=== PATIENT | male | born 1980 | race Caucasian/White ===

== ENCOUNTER 2016-03-05 05:40 | Emergency (ER) | payer SELFPAY ==
[2016-03-05] MEDS ORDERED: ACETAMINOPHEN 325 MG TAB As Ordered ONE (08:11)
[2016-03-05] MEDS ORDERED: IPRATROPIUM 0.5MG/ALBUTEROL 2.5MG INH SOL UD 3ML (DUONEB)(J7620) As Ordered ONE (08:13)
--- NOTE | 2016-03-05 08:58 | EDDOCDS ---
Physician Documentation [facility] Name: Ezequiel Hines Age: 35 yrs Sex: Male : 1980 Arrival Date: 03/05/2016 Time: 05:40 Bed 15 Private MD: Disposition: 03/05/16 08:43 Discharged to Home/Self Care. Impression: Acute upper respiratory infection, unspecified. - Condition is Stable. - Discharge Instructions: Upper Respiratory Infection, Adult, [id number]. - Prescriptions for Albuterol Sulfate 90 mcg/actuation Inhalation HFA Aerosol Inhaler - inhale 2 puff by INHALATION route every 4 hours As needed; 1 Inhaler. - Medication Reconciliation, Local Pharmacy Hours form. - Follow up: [facility]; When: Call to arrange an appointment; Reason: Continuance of care. - Problem is new. - Symptoms have improved. Historical: - Allergies: No known drug Allergies; - Home Meds: 1. nyquil 10 mL (Last dose: 03/04/2016 22:00) - PMHx: none; - PSHx: none; - Social history: Smoking status: Patient uses tobacco products, light tobacco smoker. No barriers to communication noted, The patient speaks fluent Polish, Speaks appropriately for age. - Family history: Not pertinent. - : The pt / caregiver states he / she is not on anticoagulants. Home medication list is obtained from the patient. - Exposure Risk Screening:: None identified. Vital Signs: 03/05 06:05 BP 127 / 72; Pulse 67; Resp 18; Temp 97.2(O); Pulse Ox 97% ; Weight 97.52 kg / 214.99 kmg1 lbs (R); Height 6 ft. 1 in. (185.42 cm) (R); Pain 7/10; 08:56 BP 114 / 75; Pulse 66; Resp 18; Temp 96.4(O); Pulse Ox 97% on R/A; Pain 5/10; jjr 06:05 Body Mass Index 28.37 (97.52 kg, 185.42 cm) kmg1 MDM: 07:55 Albuterol-Ipratropium 3 ml Inhalation once ordered. fg 07:55 Strep Screen, Nursing ordered. fg 07:55 Acetaminophen Tablet 650 mg PO once ordered. fg 07:57 Chest, 1 View Ordered. EDMS 08:17 GATS (NEGATIVE STREP SCREEN) Ordered. EDMS Administered Medications: 08:15 Drug: Acetaminophen 650 mg [acetaminophen 325 mg tablet (2 tabs)] Route: PO; jjr 08:17 Drug: Albuterol-Ipratropium 3 ml [ipratropium-albuterol 0.5 mg-3 mg(2.5 mg base)/3 mL 6 nebulization soln (3 mL)] Route: Inhalation; 08:38 Follow up: Response: Nebulizer completed [facility] Signatures: Dispatcher Med[employer] EDMS Carla Mercado, RN RN kmg1 Mayi Butler RN RN jjr Simran Godoy MD MD fg Gracy Henry RN RN tm5 Sun Marquez 6 [facility]
--- NOTE | 2016-03-05 08:58 | EDDOCDS ---
Nurse's Notes [facility] Name: Ezequiel Hines Age: 35 yrs Sex: Male : 1980 Arrival Date: 03/05/2016 Time: 05:40 Bed 15 Private MD: Diagnosis: Acute upper respiratory infection, unspecified Presentation: 03/05 06:02 Presenting complaint: Patient states: Headache, cough, sore throat. 2 weeks. Not kmg1 getting better. Suicide/Homicide risk assessment- the patient denies having any suicidal and/or homicidal ideations and does not present with any other emotional, behavioral or mental health complaints. Status: Patient is not a resident services director or dependent. Transition of care: patient was not received from another setting of care. 06:02 Acuity: BARB Level 4 [facility] 06:02 Method Of Arrival: Walkin/Carried/[place]std [facility] 06:09 Adult Sepsis Screening: The patient does not have new or worsening altered mentation. kmg1 Patient's respiratory rate is less than 22. Systolic blood pressure is greater than 100. Patient has a qSOFA score of 0- Negative Sepsis Screen. Triage Assessment: 06:05 General: Appears in no apparent distress, comfortable, Behavior is appropriate for age, kmg1 cooperative, pleasant. Pain: Location: right sikhism and left sikhism Pain currently is 7 out of 10 on a pain scale. Quality of pain is described as squeezing. HIV screening NA for this visit Offered previously. Neurological: Level of Consciousness is awake, alert, Oriented to person, place, time, Reports headache. EENT: Throat is pink Reports pain in throat. Historical: - Allergies: No known drug Allergies; - Home Meds: 1. nyquil 10 mL (Last dose: 03/04/2016 22:00) - PMHx: none; - PSHx: none; - Social history: Smoking status: Patient uses tobacco products, light tobacco smoker. No barriers to communication noted, The patient speaks fluent Polish, Speaks appropriately for age. - Family history: Not pertinent. - : The pt / caregiver states he / she is not on anticoagulants. Home medication list is obtained from the patient. - Exposure Risk Screening:: None identified. Screenin:38 Screening information is obtained from the patient. Fall risk: No risks identified. tm5 Assistance ADL's: requires no assistance with activities of daily living. Abuse/DV Screen: The patient / caregiver reports he/she is: not in a situation that causes fear, pain or injury. Nutritional screening: No deficits noted. Advance Directives: Currently, there is no health care proxy. home support is adequate. Assessment: 06:38 General: Appears in no apparent distress, Behavior is appropriate for age, cooperative. tm5 Pain: Location: right sikhism and left sikhism Pain currently is 7 out of 10 on a pain scale. Quality of pain is described as throbbing. Neurological: Level of Consciousness is awake, alert, Oriented to person, place, time. EENT: Throat is pink. Respiratory: Airway is patent Respiratory effort is even, unlabored, Respiratory pattern is regular, symmetrical, Breath sounds are clear bilaterally. Reports cough that is non-productive, dry, for 2 weeks now. Derm: Skin is pink, warm & dry. normal. 07:22 General: Appears in no apparent distress, Behavior is appropriate for age. EENT: jjr audible nasal congestion. Respiratory: Breath sounds are coarse in left posterior upper lobe, right posterior upper lobe and right posterior middle lobe Breath sounds with wheezes in left posterior upper lobe and right posterior upper lobe Reports cough that is dry. Respiratory: Airway is patent Respiratory effort is even, unlabored, Respiratory pattern is regular. Derm: No deficits noted. 08:33 General: Appears in no apparent distress, coarse breath sounds no longer present, jjr expiratory wheezes remain. Respiratory: Airway is patent Respiratory effort is even, unlabored, Respiratory pattern is regular. Derm: No deficits noted. 08:56 General: rates chest tightness/ache 5/10. jjr Vital Signs: 06:05 BP 127 / 72; Pulse 67; Resp 18; Temp 97.2(O); Pulse Ox 97% ; Weight 97.52 kg (R); kmg1 Height 6 ft. 1 in. (185.42 cm) (R); Pain 7/10; 08:56 BP 114 / 75; Pulse 66; Resp 18; Temp 96.4(O); Pulse Ox 97% on R/A; Pain 5/10; jjr 06:05 Body Mass Index 28.37 (97.52 kg, 185.42 cm) [facility] Vitals: 06:05 Log In Time: March 05, 2016 at 05:39. kmg1 08:15 Strep Screen is obtained and tested: Negative, a GATSNEG culture is ordered in [facility] jr and sent. ED Course: 05:41 Patient visited by Laurie Zhou, Reg. hs2 05:41 Patient moved to Waiting hs2 06:03 Triage Initiated kmg1 06:17 Patient moved to 15 kmg1 06:37 Patient visited by Gracy Henry RN. tm5 06:38 Awaiting ED physician evaluation. tm5 06:38 The patient / caregiver is instructed regarding the plan of care and ED course. Family tm5 accompanied patient. 07:18 Simran Godoy MD is Attending Physician. fg 07:23 Patient visited by Mayi Butler RN. jjr 07:35 Patient visited by Simran Godoy MD. fg 08:35 Patient visited by Mayi Butler RN. jjr 08:[address] [facility] is Referral Physician. fg 08:56 No IV's were initiated during this patient's visit. No procedures done that require jjr assistance. Administered Medications: 08:15 Drug: Acetaminophen 650 mg [acetaminophen 325 mg tablet (2 tabs)] Route: PO; jjr 08:17 Drug: Albuterol-Ipratropium 3 ml [ipratropium-albuterol 0.5 mg-3 mg(2.5 mg base)/3 mL [facility] nebulization soln (3 mL)] Route: Inhalation; 08:38 Follow up: Response: Nebulizer completed km6 RT: 08:38 Initial Med Neb Given as ordered Patient was instructed and evaluated on procedure km6 Patient tolerated procedure well without adverse effect. Respiratory: Breath sounds with wheezes bilaterally. at expiration. Order Results: There are currently no results for this order. Outcome: 08:43 Discharge ordered by Provider. fg 08:56 Discharge Assessment: patient administered narcotics - no. The following High Risk jjr Discharge criteria are identified: None. Discharged to home ambulatory. Condition: stable. Discharge instructions given to patient, Instructed on discharge instructions, follow up and referral plans. medication usage, Demonstrated understanding of instructions, medications, Prescriptions given X 1. No special radiology studies were completed. Property sent home with patient. 08:57 Patient left the ED. jjr Signatures: Carla Mercado RN RN [facility] Sun Marquez [facility] Mayi Butler, RN RN jjr Simran Godoy MD MD Laurie Zhou, [facility] Reg hs2 Gracy Henry,RN RN tm5 CATHERINED
--- NOTE | 2016-03-06 11:07 | REP ---
Portable chest, AP view: Comparison is 02/12/2015. The lung sanchez are clear. The cardiac size is normal The romi, mediastinum, and bony thorax are unremarkable. Impression: Negative portable chest. Signed by Amrit Peace MD 03/05/2016 08:34 A
--- NOTE | 2016-03-07 09:58 | EDDOCDS ---
Physician Documentation [facility] Name: Ezequiel Hines Age: 35 yrs Sex: Male : 1980 Arrival Date: 03/05/2016 Time: 05:40 Bed 15 Private MD: Disposition: 03/05/16 08:43 Discharged to Home/Self Care. Impression: Acute upper respiratory infection, unspecified. - Condition is Stable. - Discharge Instructions: Upper Respiratory Infection, Adult, [id number]. - Prescriptions for Albuterol Sulfate 90 mcg/actuation Inhalation HFA Aerosol Inhaler - inhale 2 puff by INHALATION route every 4 hours As needed; 1 Inhaler. - Medication Reconciliation, Local Pharmacy Hours form. - Follow up: [facility]; When: Call to arrange an appointment; Reason: Continuance of care. - Problem is new. - Symptoms have improved. Historical: - Allergies: No known drug Allergies; - Home Meds: 1. nyquil 10 mL (Last dose: 03/04/2016 22:00) - PMHx: none; - PSHx: none; - Social history: Smoking status: Patient uses tobacco products, light tobacco smoker. No barriers to communication noted, The patient speaks fluent Ukrainian, Speaks appropriately for age. - Family history: Not pertinent. - : The pt / caregiver states he / she is not on anticoagulants. Home medication list is obtained from the patient. - Exposure Risk Screening:: None identified. Vital Signs: 03/05 06:05 BP 127 / 72; Pulse 67; Resp 18; Temp 97.2(O); Pulse Ox 97% ; Weight 97.52 kg / 214.99 kmg1 lbs (R); Height 6 ft. 1 in. (185.42 cm) (R); Pain 7/10; 08:56 BP 114 / 75; Pulse 66; Resp 18; Temp 96.4(O); Pulse Ox 97% on R/A; Pain 5/10; jjr 06:05 Body Mass Index 28.37 (97.52 kg, 185.42 cm) kmg1 MDM: 07:55 Albuterol-Ipratropium 3 ml Inhalation once ordered. fg 07:55 Strep Screen, Nursing ordered. fg 07:55 Acetaminophen Tablet 650 mg PO once ordered. fg 07:57 Chest, 1 View Ordered. EDMS 08:17 GATS (NEGATIVE STREP SCREEN) Ordered. EDMS 09:59 Financial registration complete. mm15 10:00 [facility] Payment Agreement was scanned into [employer] and attached to record. mm15 18:29 T-Sheet-- Draft Copy was scanned into [employer] and attached to record. klr Administered Medications: 08:15 Drug: Acetaminophen 650 mg [acetaminophen 325 mg tablet (2 tabs)] Route: PO; jjr 08:17 Drug: Albuterol-Ipratropium 3 ml [ipratropium-albuterol 0.5 mg-3 mg(2.5 mg base)/3 mL km6 nebulization soln (3 mL)] Route: Inhalation; 08:38 Follow up: Response: Nebulizer completed km6 Signatures: Dispatcher [employer] EDMS Carla Mercado RN RN kmg1 Mayi Butler RN RN jBrandi Nuñez mm15 Simran Godoy MD MD fg Redder, Kathie klr Matice, Tonya, RN RN tm5 Sun Marquez km6 The chart was reviewed and I authenticate all verbal orders and agree with the evaluation and treatment provided.Attachments: 10:00 [facility] Payment Agreement mm15 18:29 T-Sheet-- Draft Copy klr Chart Complete MTDD
--- NOTE | 2016-03-07 09:58 | EDDOCDS ---
Nurse's Notes [facility] Name: Ezequiel Hines Age: 35 yrs Sex: Male : 1980 Arrival Date: 03/05/2016 Time: 05:40 Bed 15 Private MD: Diagnosis: Acute upper respiratory infection, unspecified Presentation: 03/05 06:02 Presenting complaint: Patient states: Headache, cough, sore throat. 2 weeks. Not kmg1 getting better. Suicide/Homicide risk assessment- the patient denies having any suicidal and/or homicidal ideations and does not present with any other emotional, behavioral or mental health complaints. Status: Patient is not a retail service technician or dependent. Transition of care: patient was not received from another setting of care. 06:02 Acuity: BARB Level 4 [facility] 06:02 Method Of Arrival: Walkin/Carried/Asstd [facility] 06:09 Adult Sepsis Screening: The patient does not have new or worsening altered mentation. kmg1 Patient's respiratory rate is less than 22. Systolic blood pressure is greater than 100. Patient has a qSOFA score of 0- Negative Sepsis Screen. Triage Assessment: 06:05 General: Appears in no apparent distress, comfortable, Behavior is appropriate for age, kmg1 cooperative, pleasant. Pain: Location: right congregational and left congregational Pain currently is 7 out of 10 on a pain scale. Quality of pain is described as squeezing. HIV screening NA for this visit Offered previously. Neurological: Level of Consciousness is awake, alert, Oriented to person, place, time, Reports headache. EENT: Throat is pink Reports pain in throat. Historical: - Allergies: No known drug Allergies; - Home Meds: 1. nyquil 10 mL (Last dose: 03/04/2016 22:00) - PMHx: none; - PSHx: none; - Social history: Smoking status: Patient uses tobacco products, light tobacco smoker. No barriers to communication noted, The patient speaks fluent Icelandic, Speaks appropriately for age. - Family history: Not pertinent. - : The pt / caregiver states he / she is not on anticoagulants. Home medication list is obtained from the patient. - Exposure Risk Screening:: None identified. Screenin:38 Screening information is obtained from the patient. Fall risk: No risks identified. tm5 Assistance ADL's: requires no assistance with activities of daily living. Abuse/DV Screen: The patient / caregiver reports he/she is: not in a situation that causes fear, pain or injury. Nutritional screening: No deficits noted. Advance Directives: Currently, there is no health care proxy. home support is adequate. Assessment: 06:38 General: Appears in no apparent distress, Behavior is appropriate for age, cooperative. tm5 Pain: Location: right congregational and left congregational Pain currently is 7 out of 10 on a pain scale. Quality of pain is described as throbbing. Neurological: Level of Consciousness is awake, alert, Oriented to person, place, time. EENT: Throat is pink. Respiratory: Airway is patent Respiratory effort is even, unlabored, Respiratory pattern is regular, symmetrical, Breath sounds are clear bilaterally. Reports cough that is non-productive, dry, for 2 weeks now. Derm: Skin is pink, warm & dry. normal. 07:22 General: Appears in no apparent distress, Behavior is appropriate for age. EENT: jjr audible nasal congestion. Respiratory: Breath sounds are coarse in left posterior upper lobe, right posterior upper lobe and right posterior middle lobe Breath sounds with wheezes in left posterior upper lobe and right posterior upper lobe Reports cough that is dry. Respiratory: Airway is patent Respiratory effort is even, unlabored, Respiratory pattern is regular. Derm: No deficits noted. 08:33 General: Appears in no apparent distress, coarse breath sounds no longer present, jjr expiratory wheezes remain. Respiratory: Airway is patent Respiratory effort is even, unlabored, Respiratory pattern is regular. Derm: No deficits noted. 08:56 General: rates chest tightness/ache 5/10. jjr Vital Signs: 06:05 BP 127 / 72; Pulse 67; Resp 18; Temp 97.2(O); Pulse Ox 97% ; Weight 97.52 kg (R); kmg1 Height 6 ft. 1 in. (185.42 cm) (R); Pain 7/10; 08:56 BP 114 / 75; Pulse 66; Resp 18; Temp 96.4(O); Pulse Ox 97% on R/A; Pain 5/10; jjr 06:05 Body Mass Index 28.37 (97.52 kg, 185.42 cm) [facility] Vitals: 06:05 Log In Time: March 05, 2016 at 05:39. kmg1 08:15 Strep Screen is obtained and tested: Negative, a GATSNEG culture is ordered in [facility] jr and sent. ED Course: 05:41 Patient visited by Laurie Zhou, Reg. hs2 05:41 Patient moved to Waiting hs2 06:03 Triage Initiated kmg1 06:17 Patient moved to 15 kmg1 06:37 Patient visited by Gracy Henry,AFIA. tm5 06:38 Awaiting ED physician evaluation. tm5 06:38 The patient / caregiver is instructed regarding the plan of care and ED course. Family tm5 accompanied patient. 07:18 Simran Godoy MD is Attending Physician. fg 07:23 Patient visited by Mayi Butler, AFIA. jjr 07:35 Patient visited by Simran Godoy MD. fg 08:35 Patient visited by Mayi Butler, AFIA. jjr 08:43 [facility] is Referral Physician. fg 08:56 No IV's were initiated during this patient's visit. No procedures done that require jjr assistance. 10:00 [facility] Payment Agreement was scanned into [employer] and attached to record. mm15 18:29 T-Sheet-- Draft Copy was scanned into [employer] and attached to record. klr 03/06 11:19 Chest, 1 View Returned. EDMS Administered Medications: 03/05 08:15 Drug: Acetaminophen 650 mg [acetaminophen 325 mg tablet (2 tabs)] Route: PO; jjr 08:17 Drug: Albuterol-Ipratropium 3 ml [ipratropium-albuterol 0.5 mg-3 mg(2.5 mg base)/3 mL [facility] nebulization soln (3 mL)] Route: Inhalation; 08:38 Follow up: Response: Nebulizer completed km6 RT: 08:38 Initial Med Neb Given as ordered Patient was instructed and evaluated on procedure km6 Patient tolerated procedure well without adverse effect. Respiratory: Breath sounds with wheezes bilaterally. at expiration. Order Results: Lab Order: GATS (NEGATIVE STREP SCREEN); SPEC'M 03/05/16 08:20 Test: GATS CULTURE (NEG STREP SCR); Value: GATS RESULT NEGATIVE FOR STREP PYOGENES (GROUP A); Status: F Test: GATS CULTURE (NEG STREP SCR); Value: <EXTERNAL COMMENT eCWMed> FULL REPORT IN LAB NOTES (eCW and Medent).; Status: F Radiology Order: Chest, 1 View Test: Chest, 1 View REASON FOR EXAMINATION: Cough; Portable chest, AP view:; ; Comparison is 02/12/2015.; ; The lung sanchez are clear. The cardiac size is normal; ; The romi, mediastinum, and bony thorax are unremarkable.; ; Impression:; ; Negative portable chest.; ; ; Signed by; Amrit Peace MD 03/05/2016 08:34 A; Outcome: 08:43 Discharge ordered by Provider. fg 08:56 Discharge Assessment: patient administered narcotics - no. The following High Risk jjr Discharge criteria are identified: None. Discharged to home ambulatory. Condition: stable. Discharge instructions given to patient, Instructed on discharge instructions, follow up and referral plans. medication usage, Demonstrated understanding of instructions, medications, Prescriptions given X 1. No special radiology studies were completed. Property sent home with patient. 08:57 Patient left the ED. jjr Signatures: Dispatcher [employer] EDMS Carla Mercado RN RN kmg1 Sun Marquez km6 Mayi Butler RN RN jjBrandi Oliver mm15 Simran Godoy MD MD Laurie Zhou, Reg Reg hs2 Eunice Nava Tonya,RN RN tm5 Chart Complete MTDD
--- NOTE | 2016-03-07 09:58 | EDDOCDS ---
Physician Documentation [facility] Name: Ezequiel Hines Age: 35 yrs Sex: Male : 1980 Arrival Date: 03/05/2016 Time: 05:40 Bed 15 Private MD: Disposition: 03/05/16 08:43 Discharged to Home/Self Care. Impression: Acute upper respiratory infection, unspecified. - Condition is Stable. - Discharge Instructions: Upper Respiratory Infection, Adult, [id number]. - Prescriptions for Albuterol Sulfate 90 mcg/actuation Inhalation HFA Aerosol Inhaler - inhale 2 puff by INHALATION route every 4 hours As needed; 1 Inhaler. - Medication Reconciliation, Local Pharmacy Hours form. - Follow up: [facility]; When: Call to arrange an appointment; Reason: Continuance of care. - Problem is new. - Symptoms have improved. Historical: - Allergies: No known drug Allergies; - Home Meds: 1. nyquil 10 mL (Last dose: 03/04/2016 22:00) - PMHx: none; - PSHx: none; - Social history: Smoking status: Patient uses tobacco products, light tobacco smoker. No barriers to communication noted, The patient speaks fluent Romansh, Speaks appropriately for age. - Family history: Not pertinent. - : The pt / caregiver states he / she is not on anticoagulants. Home medication list is obtained from the patient. - Exposure Risk Screening:: None identified. Vital Signs: 03/05 06:05 BP 127 / 72; Pulse 67; Resp 18; Temp 97.2(O); Pulse Ox 97% ; Weight 97.52 kg / 214.99 kmg1 lbs (R); Height 6 ft. 1 in. (185.42 cm) (R); Pain 7/10; 08:56 BP 114 / 75; Pulse 66; Resp 18; Temp 96.4(O); Pulse Ox 97% on R/A; Pain 5/10; jjr 06:05 Body Mass Index 28.37 (97.52 kg, 185.42 cm) kmg1 MDM: 07:55 Albuterol-Ipratropium 3 ml Inhalation once ordered. fg 07:55 Strep Screen, Nursing ordered. fg 07:55 Acetaminophen Tablet 650 mg PO once ordered. fg 07:57 Chest, 1 View Ordered. EDMS 08:17 GATS (NEGATIVE STREP SCREEN) Ordered. EDMS 09:59 Financial registration complete. mm15 10:00 [facility] Payment Agreement was scanned into [employer] and attached to record. mm15 18:29 T-Sheet-- Draft Copy was scanned into [employer] and attached to record. klr Administered Medications: 08:15 Drug: Acetaminophen 650 mg [acetaminophen 325 mg tablet (2 tabs)] Route: PO; jjr 08:17 Drug: Albuterol-Ipratropium 3 ml [ipratropium-albuterol 0.5 mg-3 mg(2.5 mg base)/3 mL km6 nebulization soln (3 mL)] Route: Inhalation; 08:38 Follow up: Response: Nebulizer completed km6 Signatures: Dispatcher [employer] EDMS Carla Mercado RN RN kmg1 Mayi Butler RN RN jBrandi Nuñez mm15 Simran Godoy MD MD fg Redder, Kathie klr Matice, Tonya, RN RN tm5 Sun Marquez km6 The chart was reviewed and I authenticate all verbal orders and agree with the evaluation and treatment provided.Attachments: 10:00 [facility] Payment Agreement mm15 18:29 T-Sheet-- Draft Copy klr Chart Complete MTDD
== END 2016-03-05 08:57 | disposition home or self-care (01) ==
LOC: M ED 05:40
DX: J06.9 Acute upper respiratory infection, unspecified (principal); F17.200 Nicotine dependence, unspecified, uncomplicated

== ENCOUNTER 2017-03-09 13:28 | Emergency (ER) | payer SELFPAY ==
[2017-03-09] MEDS: ONDANSETRON 4MG/2ML VIAL (J2405) IV (14:47)
[2017-03-09] MEDS: KETOROLAC 30 MG/ML VIAL (J1885) IV (14:47)
[2017-03-09] MEDS: NS 1,000 ML IV (14:47)
[2017-03-09] MEDS: GASTROGRAFIN SOLUTION 30ML PO ×2 (14:52→15:21)
[2017-03-09 15:01] LABS: BASO # 0.1 10^3/uL (0.0-0.2); BASO % 0.4 % (0.0-1.0); EOS % 0.2 % (0.0-3.0); HEMATOCRIT 47.6 % (42.0-52.0); HEMOGLOBIN 16.9 g/dl (14.0-18.0); IMMATURE GRANULOCYTE # 0.1 10^3/uL (0-0); IMMATURE GRANULOCYTE % 0.4 % (0-0); LYMPH # 1.6 10^3/uL (1.5-4.5); LYMPH % 9.9 % (24.0-44.0); MEAN CORPUSCULAR HEMOGLOBIN 32.3 pg (27.0-33.0); MEAN CORPUSCULAR HGB CONC 35.5 g/dl (32.0-36.5); MONO % 5.9 % (0.0-5.0); NEUTROPHILS # 13.5 10^3/uL (1.8-7.7); NEUTROPHILS % 83.2 % (36.0-66.0); PLATELET COUNT, AUTOMATED 219 10^3/uL (150-450); RED BLOOD COUNT 5.23 10^6/uL (4.30-6.10); RED CELL DISTRIBUTION WIDTH 12.8 % (11.5-14.5); WHITE BLOOD COUNT 16.2 10^3/uL (4.0-10.0)
[2017-03-09 15:25] LABS: ALBUMIN 4.1 GM/DL (3.2-5.2); ALBUMIN/GLOBULIN RATIO 1.21 (1.00-1.93); ALKALINE PHOSPHATASE 67 U/L (45-117); ALT/SGPT 23 U/L (12-78); ANION GAP 4 MEQ/L (8-16); AST/SGOT 15 U/L (7-37); BILIRUBIN,TOTAL 0.9 MG/DL (0.2-1.0); BLOOD UREA NITROGEN 13 MG/DL (7-18); CARBON DIOXIDE LEVEL 30 MEQ/L (21-32); CHLORIDE LEVEL 105 MEQ/L (98-107); CREATININE FOR GFR 0.82 MG/DL (0.70-1.30); GLOMERULAR FILTRATION RATE > 60.0 (>60); GLUCOSE, FASTING 89 MG/DL (70-100); LIPASE 71 U/L (73-393); POTASSIUM SERUM 3.7 MEQ/L (3.5-5.1); SODIUM LEVEL 139 MEQ/L (136-145); TOTAL PROTEIN 7.5 GM/DL (6.4-8.2)
[2017-03-09] MEDS ORDERED: ISOVUE-370 76% 100ML VIAL (Q9967) As Ordered (15:55)
[2017-03-09 16:13] LABS: APPEARANCE, URINE CLEAR (CLEAR); BACTERIA, URINE AUTO NEGATIVE (NEGATIVE); BILIRUBIN, URINE AUTO NEGATIVE (NEGATIVE); BLOOD, URINE BLOOD NEGATIVE (NEGATIVE); COLOR, URINE AMBER (YELLOW); GLUCOSE, URINE (UA) AUTO NEGATIVE (NEGATIVE); KETONE, URINE AUTO TRACE mg/dL (NEGATIVE); LEUKOCYTE ESTERASE, URINE AUTO NEGATIVE (NEGATIVE); MUCUS, URINE LARGE (NEGATIVE); NITRITE, URINE AUTO NEGATIVE (NEGATIVE); PROTEIN, URINE AUTO NEGATIVE (NEGATIVE); RBC, URINE AUTO 3 /HPF (0-3); SPECIFIC GRAVITY URINE AUTO 1.034 (1.002-1.035); SQUAMOUS EPITHELIAL CELL UR AU 0 /HPF (0-6); WBC, URINE AUTO 1 /HPF (0-3)
[2017-03-09] MEDS ORDERED: PIPERACILLIN/TAZOBACTAM SOD 3.375 GM in APPROPRIATE DILUENT 1 EA IV (16:30)
== END 2017-03-09 16:49 | disposition left against medical advice (07) ==
LOC: M ED 13:28
DX: K35.80 Unspecified acute appendicitis (principal); F17.210 Nicotine dependence, cigarettes, uncomplicated
CPT/HCPCS: Q9963

== ENCOUNTER 2017-03-09 18:01 | Day surgery (SDC) | payer SELFPAY ==
[2017-03-09] MEDS: METOCLOPRAMIDE INJ 10MG/2ML VIAL (J2765) IV ×3 (18:39)
[2017-03-09] MEDS: PIPERACILLIN/TAZOBACTAM SOD 3.375 GM in APPROPRIATE DILUENT 1 EA IV ×3 (18:51)
[2017-03-09] MEDS ORDERED: METOCLOPRAMIDE INJ 10MG/2ML VIAL (J2765) As Ordered ×3 (19:33)
[2017-03-09] MEDS ORDERED: fentaNYL 250 MCG/5 ML INJECTION (J3010) As Ordered ×3 (19:33)
[2017-03-09] MEDS ORDERED: PROPOFOL 200 MG/20 ML VIAL As Ordered ×3 (19:33)
[2017-03-09] MEDS ORDERED: MIDAZOLAM INJ 2 MG/2 ML VIAL (J2250) As Ordered ×3 (19:33)
[2017-03-09] MEDS ORDERED: ROCURONIUM BROMIDE 50 MG/5 ML VIAL As Ordered ×3 (19:33)
[2017-03-09] MEDS ORDERED: LIDOCAINE 2% INJ 100 MG/5 ML SDV (FOR ANES.) As Ordered ×3 (19:33)
[2017-03-09] MEDS ORDERED: NEOSTIGMINE 10 MG/10 ML VIAL (J2710) As Ordered ×3 (19:47)
[2017-03-09] MEDS: BUPIVACAINE HCL 0.25% 30 ML VIAL As Ordered ×3 (19:54)
[2017-03-09] MEDS: LIDOCAINE 1% SDV INJ 30 ML VIAL As Ordered ×3 (19:54)
[2017-03-09] MEDS ORDERED: GLYCOPYRROLATE INJ 0.2 MG/ML 2 ML VIAL As Ordered ×6 (19:55)
[2017-03-09] MEDS ORDERED: ACETAMINOPHEN TAB 650MG DOSE (2X325MG) PO ×3 (20:30)
[2017-03-09] MEDS ORDERED: NORCO, ANEXSIA 5/325MG TABLET (HYDROcodone/ACETAMINOPHEN) PO ×3 (20:30)
[2017-03-09] MEDS ORDERED: ONDANSETRON 4MG/2ML VIAL (J2405) IV ×6 (20:30→21:00)
[2017-03-09] MEDS: fentaNYL 100 MCG/2 ML INJECTION (J3010) IV ×12 (20:40→20:55)
[2017-03-09] MEDS: NORCO, ANEXSIA 5/325MG TABLET (HYDROcodone/ACETAMINOPHEN) PO ×6 (20:40→21:13)
[2017-03-09] MEDS ORDERED: fentaNYL 100 MCG/2 ML INJECTION (J3010) As Ordered ×3 (20:41)
[2017-03-09] MEDS ORDERED: NORCO, ANEXSIA 5/325MG TABLET (HYDROcodone/ACETAMINOPHEN) As Ordered ×3 (20:41)
[2017-03-09] MEDS: LR 1,000 ML IV ×6 (21:00→21:46)
[2017-03-09] MEDS: SENOKOT S TAB PO ×3 (22:03)
[2017-03-09] MEDS: MORPHINE 4 MG/ML 1ML SYRINGE IV (22:04)
[2017-03-09] MEDS: MORPHINE 4 MG/ML 1ML VIAL (J2270) IV (22:04)
[2017-03-09] MEDS: MORPHINE 4 MG/ML 1ML VIAL IV (22:04)
[2017-03-10] MEDS: NORCO, ANEXSIA 5/325MG TABLET (HYDROcodone/ACETAMINOPHEN) PO ×6 (01:20→06:16)
[2017-03-10] MEDS: KETOROLAC 30 MG/ML VIAL (J1885) IV ×6 (01:21→08:52)
[2017-03-10] MEDS: PIPERACILLIN/TAZOBACTAM SOD 3.375 GM in APPROPRIATE DILUENT 1 EA IV ×3 (03:39)
[2017-03-10] MEDS: LR 1,000 ML IV ×3 (06:16)
[2017-03-10 06:59] LABS: BASO # 0.1 10^3/uL (0.0-0.2); BASO % 0.6 % (0.0-1.0); EOS # 0.1 10^3/uL (0.0-0.50); EOS % 1.5 % (0.0-3.0); HEMATOCRIT 41.2 % (42.0-52.0); IMMATURE GRANULOCYTE % 0.4 % (0-0); LYMPH # 1.8 10^3/uL (1.5-4.5); LYMPH % 21.8 % (24.0-44.0); MEAN CORPUSCULAR HEMOGLOBIN 31.8 pg (27.0-33.0); MEAN CORPUSCULAR HGB CONC 35.2 g/dl (32.0-36.5); MEAN CORPUSCULAR VOLUME 90.4 fl (80.0-96.0); MONO # 0.6 10^3/uL (0.0-0.8); MONO % 7.6 % (0.0-5.0); NEUTROPHILS # 5.7 10^3/uL (1.8-7.7); NEUTROPHILS % 68.1 % (36.0-66.0); PLATELET COUNT, AUTOMATED 192 10^3/uL (150-450); RED BLOOD COUNT 4.56 10^6/uL (4.30-6.10); WHITE BLOOD COUNT 8.4 10^3/uL (4.0-10.0)
[2017-03-10 07:11] LABS: HEMOGLOBIN 14.5 g/dl (14.0-18.0)
[2017-03-10] MEDS: SENOKOT S TAB PO ×3 (08:56)
== END 2017-03-10 11:10 | disposition home or self-care (01) ==
LOC: M SDC 03-10 11:10 → M ED 18:01 → M SDC 18:30 → M PED 21:20
DX: K35.80 Unspecified acute appendicitis (principal); F17.200 Nicotine dependence, unspecified, uncomplicated
CPT/HCPCS: 44970

== ENCOUNTER 2018-03-23 21:32 | Emergency (ER) | payer MEDICAID, SELFPAY ==
[~2018-03-23] VITALS: Ht 185.4 cm; Wt 100.0 kg
[2018-03-23 21:32] VITALS: BP 123/77
[~2018-03-23 21:32] MED LIST: NORCOTAB PO
[2018-03-23 23:46] LABS: INFLUENZA A AMPLIFICATION POSITIVE (NEGATIVE); INFLUENZA B AMPLIFICATION NEGATIVE (NEGATIVE)
[2018-03-24] MEDS ORDERED: OSEL75CA PO (00:04)
[2018-03-24] MEDS ORDERED: ACETAMINOPHEN 325 MG TAB PO ONE (00:15)
== END 2018-03-24 00:23 | disposition home or self-care (01) ==
LOC: M ED 21:32
DX: J09.X9 Influenza due to identified novel influenza A virus with other manifestations (principal); J45.909 Unspecified asthma, uncomplicated

== ENCOUNTER 2020-09-20 10:35 | Emergency (ER) | payer MEDICAID, SELFPAY ==
[~2020-09-20] VITALS: Ht 185.4 cm; Wt 90.6 kg
[~2020-09-20 10:35] MED LIST changes: +HYDR-3715 PO; -NORCOTAB PO; +OSEL75CA PO
[2020-09-20] MEDS ORDERED: NS 1,000 ML IV ONE (11:25)
--- NOTE | 2020-09-20 11:39 | REP ---
INDICATION: bloody emesis, heavy smoker. COMPARISON: 03/05/2016 the latest prior TECHNIQUE: PA and lateral FINDINGS: The superior mediastinal structures are midline. The cardiac silhouette is unremarkable in size, shape, and position. The diaphragmatic surfaces of the lungs are regular, and the costophrenic angles are clear. The pulmonary sanchez are clear. The imaged osseous structures are intact. IMPRESSION: There is no acute cardiopulmonary disease. <Electronically signed by Omid Burgos > 09/20/20 0917
[2020-09-20 11:47] LABS: BASO # 0.1 10^3/uL (0.0-0.2); BASO % 0.6 % (0.0-1.0); EOS % 0.2 % (0.0-3.0); HEMATOCRIT 48.1 % (42.0-52.0); HEMOGLOBIN 16.6 g/dl (13.5-17.5); LYMPH # 1.1 10^3/uL (1.5-5.0); LYMPH % 12.6 % (24.0-44.0); MEAN CORPUSCULAR HEMOGLOBIN 31.9 pg (27.0-33.0); MEAN CORPUSCULAR HGB CONC 34.5 g/dl (32.0-36.5); MEAN CORPUSCULAR VOLUME 92.3 fl (80.0-96.0); MONO # 0.4 10^3/uL (0.0-0.8); NEUTROPHILS # 7.4 10^3/uL (1.5-8.5); NEUTROPHILS % 82.3 % (36.0-66.0); PLATELET COUNT, AUTOMATED 234 10^3/uL (150-450); RED BLOOD COUNT 5.21 10^6/uL (4.30-6.10)
[2020-09-20 12:09] LABS: ALBUMIN 4.3 GM/DL (3.2-5.2); ALT/SGPT 36 U/L (12-78); BILIRUBIN,DIRECT 0.1 MG/DL (0.0-0.2); BILIRUBIN,TOTAL 0.5 MG/DL (0.2-1.0); BLOOD UREA NITROGEN 15 MG/DL (7-18); CALCIUM LEVEL 9.7 MG/DL (8.5-10.1); CARBON DIOXIDE LEVEL 30 MEQ/L (21-32); CHLORIDE LEVEL 107 MEQ/L (98-107); CREATININE FOR GFR 0.79 MG/DL (0.70-1.30); GLOMERULAR FILTRATION RATE > 60.0 (>60); GLUCOSE, FASTING 99 MG/DL (70-100); LIPASE 57 U/L (73-393); POTASSIUM SERUM 4.5 MEQ/L (3.5-5.1); SODIUM LEVEL 140 MEQ/L (136-145); TOTAL PROTEIN 7.1 GM/DL (6.4-8.2)
[2020-09-20 12:17] VITALS: BP 121/77
== END 2020-09-20 12:45 | disposition home or self-care (01) ==
LOC: M ED 10:35
DX: K92.0 Hematemesis (principal); F17.210 Nicotine dependence, cigarettes, uncomplicated

== ENCOUNTER 2021-10-24 10:50 | Emergency (ER) | payer SELFPAY ==
[~2021-10-24] VITALS: Ht 182.9 cm; Wt 90.9 kg
[2021-10-24] MEDS ORDERED: CYCLOBENZAPRINE 10MG TABLET PO ONE (11:45)
[2021-10-24] MEDS ORDERED: IBUP80TA PO (13:27)
[2021-10-24] MEDS ORDERED: METH-1165 PO (13:27)
[2021-10-24 13:32] VITALS: BP 138/90
== END 2021-10-24 13:34 | disposition home or self-care (01) ==
LOC: M ED 10:50
DX: S39.012A Strain of muscle, fascia and tendon of lower back, initial encounter (principal); F17.200 Nicotine dependence, unspecified, uncomplicated

== ENCOUNTER 2021-11-15 12:47 | Emergency (ER) | payer SELFPAY ==
[~2021-11-15] VITALS: Ht 185.4 cm; Wt 87.9 kg
[~2021-11-15 12:47] MED LIST changes: +IBUP80TA PO; +METH-1165 PO
[2021-11-15 14:15] LABS: BASO # 0.1 10^3/uL (0.0-0.2); BASO % 0.4 % (0.0-1.0); EOS % 0.3 % (0.0-3.0); HEMATOCRIT 50.4 % (42.0-52.0); HEMOGLOBIN 16.8 g/dl (13.5-17.5); LYMPH % 8.5 % (24.0-44.0); MEAN CORPUSCULAR HEMOGLOBIN 31.4 pg (27.0-33.0); MEAN CORPUSCULAR HGB CONC 33.3 g/dl (32.0-36.5); MEAN CORPUSCULAR VOLUME 94.2 fl (80.0-96.0); MONO # 0.8 10^3/uL (0.0-0.8); MONO % 7.1 % (2.0-8.0); NEUTROPHILS # 9.8 10^3/uL (1.5-8.5); NEUTROPHILS % 83.4 % (36.0-66.0); PLATELET COUNT, AUTOMATED 243 10^3/uL (150-450); RED BLOOD COUNT 5.35 10^6/uL (4.30-6.10); WHITE BLOOD COUNT 11.7 10^3/uL (4.0-10.0)
[2021-11-15 14:25] LABS: INR 0.92; PROTHROMBIN TIME 12.6 SECONDS (12.5-14.5)
[2021-11-15 14:47] LABS: ALBUMIN 4.5 GM/DL (3.2-5.2); ALT/SGPT 30 U/L (12-78); BILIRUBIN,DIRECT 0.2 MG/DL (0.0-0.2); BILIRUBIN,TOTAL 1.1 MG/DL (0.2-1.0); BLOOD UREA NITROGEN 19 MG/DL (7-18); CALCIUM LEVEL 9.8 MG/DL (8.5-10.1); CARBON DIOXIDE LEVEL 32 MEQ/L (21-32); CHLORIDE LEVEL 102 MEQ/L (98-107); CREATININE FOR GFR 0.85 MG/DL (0.70-1.30); GLOMERULAR FILTRATION RATE > 60.0 (>60); GLUCOSE, FASTING 100 MG/DL (70-100); LIPASE 72 U/L (73-393); POTASSIUM SERUM 4.3 MEQ/L (3.5-5.1); SODIUM LEVEL 138 MEQ/L (136-145); TOTAL PROTEIN 7.6 GM/DL (6.4-8.2)
[2021-11-15] MEDS ORDERED: IBUPROFEN 800 MG TAB PO ONE (15:45)
[2021-11-15 16:02] VITALS: BP 117/63
== END 2021-11-15 16:08 | disposition home or self-care (01) ==
LOC: M ED 12:47
DX: R07.89 Other chest pain (principal); R51.9 Headache, unspecified; R11.2 Nausea with vomiting, unspecified; Z90.89 Acquired absence of other organs; F17.210 Nicotine dependence, cigarettes, uncomplicated

== ENCOUNTER 2022-07-29 05:34 | Emergency (ER) | payer OTHER, SELFPAY ==
[~2022-07-29] VITALS: Ht 182.9 cm; Wt 90.9 kg
[2022-07-29 06:26] LABS: HEMATOCRIT 42.2 % (42.0-52.0); HEMOGLOBIN 14.5 g/dl (13.5-17.5); MEAN CORPUSCULAR HEMOGLOBIN 31.7 pg (27.0-33.0); MEAN CORPUSCULAR HGB CONC 34.4 g/dl (32.0-36.5); MEAN CORPUSCULAR VOLUME 92.1 fl (80.0-96.0); PLATELET COUNT, AUTOMATED 223 10^3/uL (150-450); RED BLOOD COUNT 4.58 10^6/uL (4.30-6.10); WHITE BLOOD COUNT 6.4 10^3/uL (4.0-10.0)
[2022-07-29 06:57] LABS: ETHYL ALCOHOL (ETHANOL) 0.172 % (0.000-0.010)
[2022-07-29 06:58] LABS: ACETAMINOPHEN LEVEL < 2.0 UG/ML (10.0-20.0)
[2022-07-29 06:59] LABS: ALBUMIN 4.1 G/DL (3.2-5.2); ALKALINE PHOSPHATASE 73 U/L (46-116); ALT/SGPT 26 U/L (7.0-40); AST/SGOT 24 U/L (<34); BILIRUBIN,DIRECT 0.1 MG/DL (<0.4); BILIRUBIN,TOTAL 0.4 MG/DL (0.3-1.2); BLOOD UREA NITROGEN 13 MG/DL (9-23); CALCIUM LEVEL 9.8 MG/DL (8.5-10.1); CARBON DIOXIDE LEVEL 27 MMOL/L (20-31); CHLORIDE LEVEL 108 MMOL/L (98-107); CREATININE FOR GFR 0.78 MG/DL (0.70-1.30); GLOMERULAR FILTRATION RATE > 60.0 (>60); GLUCOSE, FASTING 88 MG/DL (60-100); POTASSIUM SERUM 3.7 MMOL/L (3.5-5.1); SALICYLATE LEVEL < 3.0 MG/DL (<30); SODIUM LEVEL 142 MMOL/L (136-145); TOTAL PROTEIN 6.7 G/DL (5.7-8.2)
[2022-07-29 07:01] LABS: THYROID STIMULATING HORMONE 0.917 uIU/ML (0.55-4.78)
[2022-07-29 08:10] LABS: AMPHETAMINES LEVEL URINE NEGATIVE (NEGATIVE); BARBITURATES URINE NEGATIVE (NEGATIVE); BENZODIAZEPINES URINE NEGATIVE (NEGATIVE); COCAINE METABOLITE URINE NEGATIVE (NEGATIVE); METHADONE URINE NEGATIVE (NEGATIVE); OPIATES URINE NEGATIVE (NEGATIVE); PHENCYCLIDINE URINE NEGATIVE (NEGATIVE)
[2022-07-29 08:13] LABS: CANNABINOIDS URINE POSITIVE (NEGATIVE)
[2022-07-29 13:46] VITALS: BP 96/53; TEMP 97.2; O2SAT 99
== END 2022-07-29 14:47 | disposition home or self-care (01) ==
LOC: M ED 05:34
DX: F10.129 Alcohol abuse with intoxication, unspecified (principal); F17.200 Nicotine dependence, unspecified, uncomplicated

== ENCOUNTER 2022-10-05 20:21 | Emergency (ER) | payer OTHER ==
[~2022-10-05] VITALS: Ht 182.9 cm; Wt 86.9 kg
[2022-10-05 20:22] VITALS: BP 133/87; TEMP 97.8; O2SAT 99
== END 2022-10-06 00:30 | disposition left against medical advice (07) ==
LOC: M ED 20:21
DX: Z53.21 Procedure and treatment not carried out due to patient leaving prior to being seen by health care provider (principal)

== ENCOUNTER 2024-04-01 19:40 | Emergency (ER) | payer OTHER, SELFPAY ==
[~2024-04-01] VITALS: Ht 182.9 cm; Wt 89.5 kg
[2024-04-01 19:43] VITALS: TEMP 96.9
[2024-04-01 20:24] LABS: BASO # 0.1 10^3/uL (0.0-0.2); BASO % 0.6 % (0.0-1.0); EOS # 0.2 10^3/uL (0.0-0.5); EOS % 2.5 % (0.0-3.0); HEMOGLOBIN 15.4 g/dl (13.5-17.5); LYMPH # 1.8 10^3/uL (1.5-5.0); LYMPH % 20.9 % (24.0-44.0); MEAN CORPUSCULAR HEMOGLOBIN 31.6 pg (27.0-33.0); MEAN CORPUSCULAR HGB CONC 34.2 g/dl (32.0-36.5); MEAN CORPUSCULAR VOLUME 92.2 fl (80.0-96.0); MONO # 0.6 10^3/uL (0.0-0.8); MONO % 6.8 % (2.0-8.0); NEUTROPHILS # 5.8 10^3/uL (1.5-8.5); PLATELET COUNT, AUTOMATED 300 10^3/uL (150-450); RED BLOOD COUNT 4.88 10^6/uL (4.30-6.10); WHITE BLOOD COUNT 8.4 10^3/uL (4.0-10.0)
[2024-04-01 21:15] LABS: LIPASE 22 U/L (12-53)
[2024-04-01 21:17] LABS: ALKALINE PHOSPHATASE 70 U/L (40-129); ALT/SGPT 26 U/L (7.0-40); AST/SGOT 21 U/L (<34); BILIRUBIN,DIRECT 0.1 MG/DL (<0.4); BILIRUBIN,TOTAL 0.3 MG/DL (0.3-1.2); BLOOD UREA NITROGEN 10 MG/DL (9-23); CARBON DIOXIDE LEVEL 30 MMOL/L (20-31); CHLORIDE LEVEL 105 MMOL/L (98-107); CREATININE FOR GFR 0.75 MG/DL (0.70-1.30); GLOMERULAR FILTRATION RATE > 60.0 (>60); GLUCOSE, FASTING 118 MG/DL (60-100); POTASSIUM SERUM 4.2 MMOL/L (3.5-5.1); SODIUM LEVEL 142 MMOL/L (136-145)
[2024-04-01] MEDS ORDERED: COLA100C5 PO (23:51)
[2024-04-01] MEDS: ACETAMINOPHEN 325 MG TAB PO ONE (23:54)
[2024-04-01 23:57] VITALS: BP 140/77; O2SAT 99
== END 2024-04-01 23:59 | disposition home or self-care (01) ==
LOC: M ED 19:40
DX: K59.00 Constipation, unspecified (principal); F17.200 Nicotine dependence, unspecified, uncomplicated; Z90.89 Acquired absence of other organs; Z79.1 Long term (current) use of non-steroidal anti-inflammatories (NSAID); Z79.899 Other long term (current) drug therapy